=== PATIENT | female | born 1970 | race Two or more races ===

== ENCOUNTER 2017-06-14 13:04 | Inpatient (IN) | payer OTHER ==
[2017-06-14 13:16] VITALS: BMI 24.3
[2017-06-14] MEDS ORDERED: METOCLOPRAMIDE HCL INJECTION 10 MG/2 ML VIAL IVPUSH ONE ×2 (13:35→18:15)
[2017-06-14] MEDS ORDERED: morphine CARPU-JECT 4 MG/1 ML DISP.SYRIN IVPUSH ONE (13:35)
[2017-06-14] MEDS ORDERED: PANTOPRAZOLE SODIUM 40 MG VIAL IVPB ONE (13:35)
--- NOTE | 2017-06-14 13:35 | PDOC ---
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 She last had an endoscopy 2-3 years ago which she states was normal. She describes the epigastric pain as 10/10, sharp, radiating to her back, and constant for the past 2-3 days. She additionally notes subjective fever and chills, lightheadedness, and mild headache. She believes she is additionally withdrawling from morphine and Ativan because she has not taken either for 2-3 days. Past History - Past Medical History Allergies/Adverse Reactions: Allergies Allergy/AdvReac Type Severity Reaction Status Date / Time Penicillins Allergy Mild Verified 06/14/17 13:16 Home Medications: Ambulatory Orders Verapamil HCl ER [Calan Sr] 240 mg PO DAILY 05/18/11 Escitalopram Oxalate [Lexapro -] 10 mg PO DAILY 06/14/17 Hydromorphone HCl [Dilaudid] 8 mg PO Q3H PRN 06/14/17 Lorazepam [Ativan] 1 mg PO TID PRN 06/14/17 Morphine *Sr* [Ms Contin -] 90 mg PO Q12H 06/14/17 Ondansetron [Zofran Odt -] 8 mg SL Q8H PRN 06/14/17 Pregabalin [Lyrica] 25 mg PO TID 06/14/17 Zolpidem Tartrate [Ambien] 10 mg PO HS 06/14/17 levETIRAcetam [Keppra -] 500 mg PO BID 06/14/17 Cardiac Disorders: Yes (tachycardia, cardiac arrest) COPD: No GI Disorders: Yes (ulcers) Psychiatric Problems: Yes (anxiety,depression and etoh abuse) - Surgical History Cholecystectomy: Yes - Suicide/Smoking/Psychosocial Hx Smoking Status: No Smoking History: Never smoked Have you smoked in the past 12 months: No Number of Cigarettes Smoked Daily: 0 Information on smoking cessation initiated: No Hx Alcohol Use: No Drug/Substance Use Hx: No Substance Use Type: Alcohol Review of Systems - Review of Systems Able to Perform ROS?: Yes Constitutional: Yes: Chills, Fever (subjective). No: Unexplained wgt Loss HEENTM: No: Nose Congestion, Throat Pain Respiratory: Yes: Shortness of Breath. No: Cough Cardiac (ROS): Yes: Chest Pain (mild), Lightheadedness. No: Palpitations ABD/GI: Yes: Nausea, Vomiting, Other (hematemesis). No: Constipated, Diarrhea : No: Burning, Dysuria Musculoskeletal: No: Back Pain, Neck Pain Integumentary: No: Bruising, Rash Neurological: Yes: Headache. No: Numbness, Tingling, Weakness Endocrine: No: Unexplained Weight Gain, Unexplained Weight Loss *Physical Exam - Vital Signs Last Vital Signs Temp Pulse Resp BP Pulse Ox 98.7 F 94 H 16 130/91 100 06/14/17 13:08 06/14/17 13:08 06/14/17 13:08 06/14/17 13:08 06/14/17 13:08 - Physical Exam General Appearance: Yes: Nourished, Disheveled, Mild Distress, Other (actively vomiting small amount of coffee ground emesis with dark red blood, appears pale , answering most questions appropriately but lacks some insight into her health situation) HEENT: positive: EOMI, MADI, Normal Voice, Pale Conjunctivae, Hearing Grossly Normal. negative: Scleral Icterus (R), Scleral Icterus (L), Nasal Congestion Neck: positive: Trachea midline, Supple. negative: Tender, Rigid Respiratory/Chest: positive: Lungs Clear, Normal Breath Sounds. negative: Respiratory Distress, Crackles, Rhonchi, Stridor, Wheezing Cardiovascular: positive: Regular Rhythm, Regular Rate, S1, S2. negative: Edema , JVD, Murmur Gastrointestinal/Abdominal: positive: Normal Bowel Sounds, Soft. negative: Tender, Organomegaly, Pulsatile Mass, Guarding Musculoskeletal: positive: Normal Inspection. negative: Decreased Range of Motion, Vertebral Tenderness Extremity: positive: Normal Capillary Refill, Normal Inspection, Normal Range of Motion. negative: Tender, Cyanosis Integumentary: positive: Normal Color, Dry, Warm. negative: Erythema, Rash, Bruising Neurologic: positive: event decorator II-XII NML intact, Fully Oriented, Alert, Normal Mood/ Affect, Normal Response, Motor Strength 5/5 Procedures - Central Line Central Line Lumen: triple Central Line Position: internal jugular (R) Anesthesia: 1% Lidocaine Amount of anesthesia (ccs): 3 Complications: none Post Central Line Insertion: sutured, good blood return, position confirmed w/ CXR Heart Score/ECG Review #1 NSR, anterior T-wave inversions, prolonged QTc of 490 ms. ED Treatment Course - LABORATORY CBC & Chemistry Diagram: 06/15/17 05:15 06/15/17 05:15 Medical Decision Making - Critical Care Time Total Critical Care Time (minutes): 45 Critical Care Statement: The care of this patient involved high complexity decision making to prevent further life threatening deterioration of the patient 's condition and/or to evaluate & treat vital organ system(s) failure or risk of failure. - Medical Decision Making 47 YOF patient with h/o heavy EtOH use p/w hematemesis and epigastric pain. Initial Vital Signs Temp Pulse Resp BP Pulse Ox 98.7 F 94 H 16 130/91 100 06/14/17 13:08 06/14/17 13:08 06/14/17 13:08 06/14/17 13:08 06/14/17 13:08 Exam: Appears uncomfortable, actively vomiting small amount of coffee ground emesis with dark red blood, appears pale, tachycardic. DDX IBNLT: varices, PUD, gastritis, esophagitis, gastritis, Yazmin-Carpenter, [place]ave, hemoptysis, epistaxis, W/U ordered: CXR, T&S, Coags, CBCD, CMP, Mg, Phos, Lactate, BCx, cardiac panel, lipase, UA, UCx. TX ordered: IVF, Octreotide bolus & drip, Protonix bolus & drip, Reglan, Ativan , Morphine, Aztreonam, vancomycin. PUD is overall MC cause of UGIB in US but Pt is a nonsmoker, no regular NSAID or ASA use. Most likely for this Pt is esophageal varices as patient reports EtOH liver disease. Possible Yazmin-Carpenter tear as patient reports EtOH use, but she does not report h/o hiatal hernia. Will consider add/l Tx for varices: blood products, vasopressin, Sengstaken- Smooth tube, endoscopy & banding. Consult order placed for GI Dr. Early; spoke with Dr. Leon wo will see the patient in the ED. EKG: NSR, anterior T-wave inversions, prolonged QTc of 490 ms. Patient is a difficult stick and right IJ central line is placed without complication; flushes and draws. Laboratory Tests 06/14/17 06/14/17 06/14/17 15:00 15:00 15:03 WBC 4.9 RBC 4.00 Hgb 12.9 Hct 37.9 MCV 94.9 MCH 32.4 MCHC 34.1 RDW 20.3 H D Plt Count 99 L D MPV 9.0 Neutrophils % 79.3 D Lymphocytes % 12.4 D Monocytes % 7.0 Eosinophils % 0.5 D Basophils % 0.8 PT with INR 15.80 H INR 1.40 H PTT (Actin FS) 17.7 L Sodium Potassium Chloride Carbon Dioxide Anion Gap BUN Creatinine Creat Clearance w eGFR Random Glucose Lactic Acid Calcium Total Bilirubin AST ALT Alkaline Phosphatase Creatine Kinase Troponin I Total Protein Albumin Lipase Urine Color Urine Appearance Urine pH Ur Specific [place] Urine Protein Urine Glucose (UA) Urine Ketones Urine Blood Urine Nitrite Urine Bilirubin Urine Urobilinogen Ur Leukocyte Esterase Urine WBC (Auto) Urine RBC (Auto) Urine Mucus Blood Type O POSITIVE Antibody Screen Negative 06/14/17 06/14/17 06/14/17 15:03 15:03 15:03 WBC RBC Hgb Hct MCV MCH MCHC RDW Plt Count MPV Neutrophils % Lymphocytes % Monocytes % Eosinophils % Basophils % PT with INR INR PTT (Actin FS) Sodium 142 Potassium 3.6 Chloride 103 Carbon Dioxide 31 Anion Gap 8 BUN 9 Creatinine 0.6 Creat Clearance w eGFR > 60 Random Glucose 138 H Lactic Acid 3.0 H* Calcium 8.2 L Total Bilirubin 2.4 H D AST 208 H ALT 93 H Alkaline Phosphatase 231 H Creatine Kinase 52 Troponin I < 0.02 Total Protein 6.9 Albumin 3.2 L Lipase 70 L Urine Color Urine Appearance Urine pH Ur Specific [place] Urine Protein Urine Glucose (UA) Urine Ketones Urine Blood Urine Nitrite Urine Bilirubin Urine Urobilinogen Ur Leukocyte Esterase Urine WBC (Auto) Urine RBC (Auto) Urine Mucus Blood Type Antibody Screen 06/14/17 06/14/17 15:20 15:24 WBC RBC Hgb Hct MCV MCH MCHC RDW Plt Count MPV Neutrophils % Lymphocytes % Monocytes % Eosinophils % Basophils % PT with INR INR PTT (Actin FS) Sodium Potassium Chloride Carbon Dioxide Anion Gap BUN Creatinine Creat Clearance w eGFR Random Glucose Lactic Acid Calcium Total Bilirubin AST ALT Alkaline Phosphatase Creatine Kinase Troponin I Total Protein Albumin Lipase Urine Color Dk yellow Urine Appearance Clear Urine pH 7.0 Ur Specific [place] 1.010 Urine Protein 1+ H Urine Glucose (UA) Negative Urine Ketones Negative Urine Blood Negative Urine Nitrite Negative Urine Bilirubin Negative Urine Urobilinogen 4.0 e.u/dl H Ur Leukocyte Esterase Negative Urine WBC (Auto) 1 Urine RBC (Auto) None Urine Mucus Rare Blood Type Cancelled Antibody Screen Lactate is 3.0. ALT and AST are elevated in alcoholic hepatitis pattern; have been similarly elevated for her in the past too. Vital Signs Temperature 98.7 F 06/14/17 13:08 Pulse Rate 98 H 06/14/17 16:36 Respiratory Rate 18 06/14/17 16:36 Blood Pressure 129/82 06/14/17 16:36 O2 Sat by Pulse Oximetry (%) 95 06/14/17 16:36 06/14/17 16:57 Dr. Leon evaluates patient at the bedside. Reassessment: Patient feeling much better, no longer vomiting, resting comfortably, mild epigastric ttp. CXR: Central line in good position, NADP. The patient is unsafe for discharge at this time. She require further hospital observation, workup, and treatment. Spoke with Dr. Henderson who accepts her for ICU placement. Microblog sent to [facility] for admission. Spoke with [facility] (Maria M Dorado), in agreement patient to be admitted to ICU. [facility] requests consult placed to Dr. Ayala; order placed. Decision to Admit order placed to [facility] covering attending Dr. Castro. 06/14/17 17:06 *DC/Admit/Observation/Transfer Diagnosis at time of Disposition: UGIB (upper gastrointestinal bleed), Alcoholic liver disease, Elevated lactic acid level - Discharge Dispostion Condition at time of disposition: Guarded Decision to Admit order: Yes - Referrals - Patient Instructions - Post Discharge Activity
[2017-06-14] MEDS ORDERED: OCTREOTIDE ACETATE 50 MCG/1 ML - 1 ML VIAL IVPUSH ONE (13:49)
[2017-06-14] MEDS ORDERED: PANTOPRAZOLE SODIUM 80 MG in SODIUM CHLORIDE 100 ML IVPB SCH (14:00)
[2017-06-14] MEDS ORDERED: OCTREOTIDE ACETATE 1,200 MCG in DEXTROSE 5%-WATER - 488 ML IVPB SCH (14:00)
[2017-06-14] MEDS ORDERED: METOCLOPRAMIDE HCL INJECTION 10 MG/2 ML VIAL ONE (14:22)
[2017-06-14] MEDS ORDERED: PANTOPRAZOLE SODIUM 40 MG VIAL ONE (14:23)
[2017-06-14] MEDS ORDERED: OCTREOTIDE ACETATE 100 MCG/1 ML ONE (14:23)
[2017-06-14] MEDS ORDERED: morphine SULFATE 4 MG/ML VIAL ONE (14:23)
[2017-06-14] MEDS ORDERED: VANCOMYCIN 1,000 MG in DEXTROSE 5%-WATER - 250 ML IVPB ONE (15:08)
[2017-06-14] MEDS ORDERED: AZTREONAM 2 GM in DEXTROSE 5%-WATER 100 ML IVPB ONE (15:08)
[2017-06-14 15:12] LABS: HEMOGLOBIN 12.9 GM/dL (10.7-15.3); WHITE BLOOD COUNT 4.9 K/mm3 (4.0-10.0)
[2017-06-14 15:13] LABS: BASO % 0.8 % (0-2.0); EOS % 0.5 % (0-4.5); HEMATOCRIT 37.9 % (32.4-45.2); LYMPH % 12.4 % (8-40); MCH 32.4 pg (25.7-33.7); MCHC 34.1 g/dl (32.0-36.0); MEAN CELL VOLUME 94.9 fl (80-96); NEUT % 79.3 % (42.8-82.8); PLATELET COUNT 99 K/MM3 (134-434); RDW 20.3 % (11.6-15.6)
[2017-06-14 15:23] LABS: INR 1.4 (0.82-1.09); PROTHROMBIN TIME (PATIENT) 15.8 SEC (9.7-13.0)
[2017-06-14 15:25] LABS: ACTIVATED PTT 17.7 SECONDS (26.9-34.4)
[2017-06-14 15:28] LABS: URINE APPEARANCE CLEAR; URINE BILIRUBIN NEGATIVE (<2.0 mg/dL); URINE GLUCOSE (UA) NEGATIVE (NEGATIVE); URINE KETONE NEGATIVE (NEGATIVE); URINE LEUK ESTERASE NEGATIVE (NEGATIVE); URINE NITRITE NEGATIVE (NEGATIVE); URINE UROBILINOGEN 4.0 E.U/dl mg/dL (0.2-1.0)
--- NOTE | 2017-06-14 15:28 | PDOC ---
Attending Attestation - Resident Resident Name: Domi Jenkins - ED Attending Attestation I have performed the following: I have examined & evaluated the patient, The case was reviewed & discussed with the resident, I agree w/resident's findings & plan, Exceptions are as noted - HPI HPI: 06/14/17 15:27 47-year-old female with past medical history of alcohol abuse, fibromyalgia on chronic pain medications p/w hematemesis. The patient drinks liquor daily. Today , the patient has had vomiting dark vomitus. Reports epigastric pain. Takes NSAIDS intermittently. No fevers, chills. No blood per rectum. Patient came into the ED for further evaluation. - Physicial Exam PE: 06/14/17 15:53 GENERAL: Awake, alert, and fully oriented, pallorous. HEAD: No signs of trauma EYES: PERRLA, EOMI, sclera anicteric, conjunctiva clear ENT: Auricles normal inspection, hearing grossly normal, nares patent NECK: Normal ROM, supple, LUNGS: Breath sounds equal, clear to auscultation bilaterally. No wheezes, and no crackles HEART: Regular rate and rhythm, normal S1 and S2, no murmurs, rubs or gallops ABDOMEN: Soft, TTP epigastric. No guarding, no rebound. No masses EXTREMITIES: Normal range of motion, no edema. NEUROLOGICAL: Cranial nerves II through XII grossly intact. Normal speech, SKIN: Warm, Dry, normal turgor, no rashes or lesions noted. - Critical Care Time Total Critical Care Time: 45 Critical Care Statement: The care of this patient involved high complexity decision making to prevent further life threatening deterioration of the patient 's condition and/or to evaluate & treat vital organ system(s) failure or risk of failure. - Medical Decision Making 06/14/17 15:56 Vital Signs Temp Pulse Resp BP Pulse Ox 98.7 F 84 18 142/94 95 06/14/17 13:08 06/14/17 15:14 06/14/17 15:14 06/14/17 15:14 06/14/17 15:14 47 year old female presents with UGIB. Differential includes variceal bleeding (given alcohol hx), peptic/duodenal ulcer. Pt vitals stable. I agree with prophylactic antibiotics, PPI drip, octreotide. Pt with very difficult access peripherally. Given the nature of her illness, and with hematemesis, pt consented for triple lumen catheter. Under ultrasound guidance and sterile procedure, Right IJ triple lumen catheter placed. Chest xray reviewed by me, pending official radiology read. Triple lumen catheter in place, with what appears tip to be in SVC. Admit to ICU. 06/14/17 16:12 CBC, BMP 06/14/17 15:03 06/14/17 15:03 CMP Sodium 142 mmol/L (136-145) 06/14/17 15:03 Potassium 3.6 mmol/L (3.5-5.1) 06/14/17 15:03 Chloride 103 mmol/L (98-107) 06/14/17 15:03 Carbon Dioxide 31 mmol/L (21-32) 06/14/17 15:03 Anion Gap 8 (8-16) 06/14/17 15:03 BUN 9 mg/dL (7-18) 06/14/17 15:03 Creatinine 0.6 mg/dL (0.55-1.02) 06/14/17 15:03 Creat Clearance w eGFR > 60 (>60) 06/14/17 15:03 Random Glucose 138 mg/dL (74-106) H 06/14/17 15:03 Lactic Acid 3.0 mmol/L (0.0-2.0) H* 06/14/17 15:03 Calcium 8.2 mg/dL (8.5-10.1) L 06/14/17 15:03 Total Bilirubin 2.4 mg/dL (0.2-1.0) H D 06/14/17 15:03 AST 208 U/L (15-37) H 06/14/17 15:03 ALT 93 U/L (12-78) H 06/14/17 15:03 Alkaline Phosphatase 231 U/L (45-117) H 06/14/17 15:03 Creatine Kinase 52 IU/L (26-192) 06/14/17 15:03 Troponin I < 0.02 ng/ml (0.00-0.05) 06/14/17 15:03 Total Protein 6.9 g/dl (6.4-8.2) 06/14/17 15:03 Albumin 3.2 g/dl (3.4-5.0) L 06/14/17 15:03 Lipase 70 U/L (73-393) L 06/14/17 15:03 Labs reviewed. Low plts, elevated INR, Total bili concerning for cirrhosis. Heart Score/ECG Review #1 ECG reviewed & interpreted by me at: 13:20 06/14/17 15:35 NSR 95, no manas, QTC 490 msec, 1mm STD V2, TWi V2-V3, QTC 490 msec
[2017-06-14 15:31] LABS: URINE COLOR DK YELLOW; URINE PROTEIN 1+ (NEGATIVE)
[2017-06-14 15:34] LABS: URINE MUCUS RARE
[2017-06-14 15:41] LABS: ALBUMIN 3.2 g/dl (3.4-5.0); ALK PHOS 231 U/L (45-117); ANION GAP 8 (8-16); BILIRUBIN,TOTAL 2.4 mg/dL (0.2-1.0); BLOOD UREA NITROGEN 9 mg/dL (7-18); CALCIUM 8.2 mg/dL (8.5-10.1); CHLORIDE 103 mmol/L (98-107); CO2 31 mmol/L (21-32); CREATININE 0.6 mg/dL (0.55-1.02); GLUCOSE,RANDOM 138 mg/dL (74-106); LIPASE 70 U/L (73-393); POTASSIUM 3.6 mmol/L (3.5-5.1); SGOT/AST 208 U/L (15-37); SGPT/ALT 93 U/L (12-78); SODIUM 142 mmol/L (136-145); TOT PROT 6.9 g/dl (6.4-8.2)
[2017-06-14] MEDS: SODIUM CHLORIDE 1,000 ML IV SCH (15:52)
[2017-06-14] MEDS: PANTOPRAZOLE SODIUM 160 MG in DEXTROSE 5%-WATER - 290 ML IVPB SCH (15:53)
[2017-06-14] MEDS ORDERED: VANCOMYCIN 1 GRAM (PRE-DOCKED) 1,000 MG/250 ML BAG IVPB ONE (15:58)
--- NOTE | 2017-06-14 17:24 | CON.GI ---
Consult Consult Specialty:: Gastroenterology ( covering Dr. Early) Referred by:: Dr. Yates Reason for Consultation:: hematemesis - History of Present Illness Chief Complaint: I vomited blood today. I have been vomiting blood for weeks. History of Present Illness: 47F presents to the ER c/o bloody vomitus. She claims to have been vomiting blood for several weeks. She reports that she was hospitalized at [facility] 2 weeks ago but had no endoscopy done. She denies melena. She has chronic abdominal pain for which she is seeking narcotics. She drinks vodka daily but denies having been told that she has cirrhosis. She reports that she has systemic herpes virus for many years for which she was extensivle evaluated at [facility] in [place] 3 years ago. She had an EGD and colonoscopy there and reports both as being normal. She reports that she has a seizure disorder related to this virus but has never had a lumbar puncture, meningitis or encephalitis. She denies that her seizures are alcohol related but admits to developing DTs when she stops alcohol. She reports that she has major depression but is not bipolar and denies ever having been suicidal. She has no family left since her parents . She is disabled and on public assistance. She denies IVDA, cocaine, tobacco or other substance abuses but is seeking morphine. I advised an EGD to exclude bleeding varices or ulcers given her alcohol abuse. I informed her of the potential risks that include perforation and hemorrhage among others and she has verbally consented. I explained this procedure may be done tomorrow by Dr Early. I explained that she may need rubber band ligation of varices. 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 Gastrointestinal: Yes: GI Bleed (chronic hematemesis) Hepatobiliary: Yes: Cirrhosis (suspect alcoholic cirrhosis given ), Other ( Alcohol abuse with suspect alcoholic hepatitis and now cirrhosis) Infectious Disease: Yes: Other (Systemic herpes simplex 6) Psych: Yes: Depression - Past Surgical History Past Surgical History: Yes: Cholecystectomy (laparoscopic cholecystectomy), Colonoscopy, Upper Endoscopy - Alcohol/Substance Use Hx Alcohol Use: Yes (daily vodka "2 drinks") - Smoking History Smoking history: Never smoked Have you smoked in the past 12 months: No Aproximately how many cigarettes per day: 0 - Social History Usual Living Arrangement: Alone ADL: Independent Occupation: disabled Place of : [facility] History of Recent Travel: No Home Medications - Allergies Allergies/Adverse Reactions: Allergies Allergy/AdvReac Type Severity Reaction Status Date / Time Penicillins Allergy Mild Verified 06/14/17 13:16 - Home Medications Home Medications: Ambulatory Orders Verapamil HCl ER [Calan Sr] 240 mg PO DAILY 05/18/11 Escitalopram Oxalate [Lexapro -] 10 mg PO DAILY 06/14/17 Hydromorphone HCl [Dilaudid] 8 mg PO Q3H PRN 06/14/17 Lorazepam [Ativan] 1 mg PO TID PRN 06/14/17 Morphine *Sr* [Ms Contin -] 90 mg PO Q12H 06/14/17 Ondansetron [Zofran Odt -] 8 mg SL Q8H PRN 06/14/17 Pregabalin [Lyrica] 25 mg PO TID 06/14/17 Zolpidem Tartrate [Ambien] 10 mg PO HS 06/14/17 levETIRAcetam [Keppra -] 500 mg PO BID 06/14/17 Family Disease History - Family Disease History Family Disease History: Heart Disease: Father ( 88 pneumonia, had MT at 80) , Other: Mother ( CVA age 79) Other Family History: no cancer Review of Systems - Review of Systems Constitutional: reports: Malaise, Weakness Eyes: reports: No Symptoms HENT: reports: No Symptoms Neck: reports: Pain on Movement Cardiovascular: reports: No Symptoms Respiratory: reports: SOB on Exertion Gastrointestinal: reports: Abdominal Pain, Vomiting Blood Musculoskeletal: reports: Back Pain, Muscle Pain Neurological: reports: Weakness Psychiatric: reports: Depression Physical Exam-GI Vital Signs: Vital Signs Temperature 98.7 F 06/14/17 13:08 Pulse Rate 98 H 06/14/17 16:36 Respiratory Rate 18 06/14/17 16:36 Blood Pressure 129/82 06/14/17 16:36 O2 Sat by Pulse Oximetry (%) 95 06/14/17 16:36 CBC,CMP WBC 4.9 K/mm3 (4.0-10.0) 06/14/17 15:03 RBC 4.00 M/mm3 (3.60-5.2) 06/14/17 15:03 Hgb 12.9 GM/dL (10.7-15.3) 06/14/17 15:03 Hct 37.9 % (32.4-45.2) 06/14/17 15:03 MCV 94.9 fl (80-96) 06/14/17 15:03 MCH 32.4 pg (25.7-33.7) 06/14/17 15:03 MCHC 34.1 g/dl (32.0-36.0) 06/14/17 15:03 RDW 20.3 % (11.6-15.6) H D 06/14/17 15:03 Plt Count 99 K/MM3 (134-434) L D 06/14/17 15:03 MPV 9.0 fl (7.5-11.1) 06/14/17 15:03 Neutrophils % 79.3 % (42.8-82.8) D 06/14/17 15:03 Lymphocytes % 12.4 % (8-40) D 06/14/17 15:03 Monocytes % 7.0 % (3.8-10.2) 06/14/17 15:03 Eosinophils % 0.5 % (0-4.5) D 06/14/17 15:03 Basophils % 0.8 % (0-2.0) 06/14/17 15:03 Sodium 142 mmol/L (136-145) 06/14/17 15:03 Potassium 3.6 mmol/L (3.5-5.1) 06/14/17 15:03 Chloride 103 mmol/L (98-107) 06/14/17 15:03 Carbon Dioxide 31 mmol/L (21-32) 06/14/17 15:03 Anion Gap 8 (8-16) 06/14/17 15:03 BUN 9 mg/dL (7-18) 06/14/17 15:03 Creatinine 0.6 mg/dL (0.55-1.02) 06/14/17 15:03 Creat Clearance w eGFR > 60 (>60) 06/14/17 15:03 Random Glucose 138 mg/dL (74-106) H 06/14/17 15:03 Lactic Acid 3.0 mmol/L (0.0-2.0) H* 06/14/17 15:03 Calcium 8.2 mg/dL (8.5-10.1) L 06/14/17 15:03 Total Bilirubin 2.4 mg/dL (0.2-1.0) H D 06/14/17 15:03 AST 208 U/L (15-37) H 06/14/17 15:03 ALT 93 U/L (12-78) H 06/14/17 15:03 Alkaline Phosphatase 231 U/L (45-117) H 06/14/17 15:03 Creatine Kinase 52 IU/L (26-192) 06/14/17 15:03 Troponin I < 0.02 ng/ml (0.00-0.05) 06/14/17 15:03 Total Protein 6.9 g/dl (6.4-8.2) 06/14/17 15:03 Albumin 3.2 g/dl (3.4-5.0) L 06/14/17 15:03 Lipase 70 U/L (73-393) L 06/14/17 15:03 Current Medications Generic Name Dose Route Start Last Admin Trade Name Ynes PRN Reason Stop Dose Admin Octreotide Acetate 1,200 mcg/ 500 mls @ 20.83 mls/hr 06/14/17 14:00 06/14/17 15:53 Dextrose IVPB 20.83 mls/hr ASDIR AMELIA Administration Protocol 50 MCG/HR Sodium Chloride 1,000 mls @ 125 mls/hr 06/14/17 13:45 06/14/17 15:52 Normal Saline - IV 125 mls/hr ASDIR AMELIA Administration Pantoprazole Sodium 160 mg/ 290 mls @ 14.5 mls/hr 06/14/17 14:15 06/14/17 15: 53 Dextrose IVPB 14.5 mls/hr Q20H AMELIA Administration Constitutional: Yes: Anxious Eyes: Yes: Conjunctiva Clear HENT: Yes: Normocephalic Neck: Yes: Supple Cardiovascular: Yes: Regular Rate and Rhythm Respiratory: Yes: CTA Bilaterally Gastrointestinal Inspection: Yes: Scars (healed lap choly incisions) ...Auscultate: Yes: Normoactive Bowel Sounds ...Palpate: Yes: Soft, Other (nontender) ...Rectal Exam: Yes: Guaiac Positive (hard brown trace guaiac psoitive stool), Sphincter Tone Normal Edema: No Neurological: Yes: Alert, Oriented Labs: CBC, BMP 06/14/17 15:03 06/14/17 15:03 INR, PTT INR 1.40 (0.82-1.09) H 06/14/17 15:00 Problem List - Problems (1) Alcoholic liver disease Assessment/Plan: The pattern of transaminases is c/w alcoholic hepatitis. Her jaundice, elevated INR and thrombocytopenia suggest cirrhosis. I margaux order a sonogram to exclude hepatoma, cirrhosis and ascites. Dr. Early will assume her care tomorrow. Code(s): K70.9 - ALCOHOLIC LIVER DISEASE, UNSPECIFIED (2) UGIB (upper gastrointestinal bleed) Assessment/Plan: Given her normal Hb and only trace guaiac positive stool the patient does not appear to have a major bleed at present. Given her alcohol abuse and labs suggesting cirrhosis she will however need an EGD to exclude varices. I have obtained consent for EGD which I will discuss with Dr. Early and which can hopefully be done tomorrow. Code(s): K92.2 - GASTROINTESTINAL HEMORRHAGE, UNSPECIFIED
--- NOTE | 2017-06-14 18:26 | HP ---
"CHIEF COMPLAINT: vomiting blood PCP: Dr. Viraj Ying HISTORY OF PRESENT ILLNESS: This is a 47 year old female with PMHx of upper GI bleed, cirrhosis, alcoholic pancreatitis, cardiac arrest? (2/2 electrolyte disturbance?), anxiety, fibromyalgia, who presented to the ED with upper GI bleed. The patient reports that she has had upper GI bleeding in the past multiple times in the past. She reports a few weeks ago she had coffee ground emesis and then it got better. She states a few days ago it started again and did not improve. She denies any esopahgeal varices in the past. The patient is on multiple narcotics including morphine, dilaudid. She also takes ativan 1mg tid. ER course was notable for: (1) Temp 98.7, pulse 94, BP 130/91, resp 16, O2 100% on RA (2) Hgb 12.9, platelets 99 (3) INR 1.4 (4) Lactic acid 3 (5) Protonix gtt and octreotide gtt started (6) Empiric Vancomycin and Aztreonam given Recent Travel: denies PAST MEDICAL HISTORY: as above PAST SURGICAL HISTORY: Cholecystectomy 3 years ago Social History: Smoking: denies Alcohol: daily vodka (2 drinks per day) Drugs: denies Family History: Allergies Penicillins Allergy (Mild, Verified 06/14/17 13:16) HOME MEDICATIONS: Home Medications Medication Instructions Recorded Verapamil HCl ER [Calan Sr] 240 mg PO DAILY 05/18/11 Escitalopram Oxalate [Lexapro -] 10 mg PO DAILY 06/14/17 Hydromorphone HCl [Dilaudid] 8 mg PO Q3H PRN 06/14/17 Lorazepam [Ativan] 1 mg PO TID PRN 06/14/17 Morphine *Sr* [Ms Contin -] 90 mg PO Q12H 06/14/17 Ondansetron [Zofran Odt -] 8 mg SL Q8H PRN 06/14/17 Pregabalin [Lyrica] 25 mg PO TID 06/14/17 Zolpidem Tartrate [Ambien] 10 mg PO HS 06/14/17 levETIRAcetam [Keppra -] 500 mg PO BID 06/14/17 REVIEW OF SYSTEMS CONSTITUTIONAL: Absent: fever, chills, diaphoresis, generalized weakness, malaise, loss of appetite, weight change HEENT: Absent: rhinorrhea, nasal congestion, throat pain, throat swelling, difficulty swallowing, mouth swelling, ear pain, eye pain, visual changes CARDIOVASCULAR: Absent: chest pain, syncope, palpitations, irregular heart rate, lightheadedness , peripheral edema RESPIRATORY: Absent: cough, shortness of breath, dyspnea with exertion, orthopnea, wheezing, stridor, hemoptysis GASTROINTESTINAL: Coffee ground emesis as above Absent: abdominal pain, abdominal distension, diarrhea, constipation, melena, hematochezia GENITOURINARY: Absent: dysuria, frequency, urgency, hesitancy, hematuria, flank pain, genital pain MUSCULOSKELETAL: Absent: myalgia, arthralgia, joint swelling, back pain, neck pain SKIN: Absent: rash, itching, pallor HEMATOLOGIC/IMMUNOLOGIC: Absent: easy bleeding, easy bruising, lymphadenopathy, frequent infections ENDOCRINE: Absent: unexplained weight gain, unexplained weight loss, heat intolerance, cold intolerance NEUROLOGIC: Absent: headache, focal weakness or paresthesias, dizziness, unsteady gait, seizure, mental status changes, bladder or bowel incontinence PSYCHIATRIC: Absent: anxiety, depression, suicidal or homicidal ideation, hallucinations. PHYSICAL EXAMINATION Vital Signs - 24 hr 06/14/17 06/14/17 06/14/17 13:08 13:33 15:14 Temperature 98.7 F Pulse Rate 94 H Pulse Rate [ 84 Apical] Respiratory 16 18 Rate Blood Pressure 130/91 Blood Pressure 142/94 [Right Arm] O2 Sat by Pulse 100 97 95 Oximetry (%) 06/14/17 06/14/17 06/14/17 16:05 16:36 17:41 Temperature Pulse Rate Pulse Rate [ 84 98 H 88 Apical] Respiratory 18 18 18 Rate Blood Pressure Blood Pressure 141/89 129/82 119/90 [Right Arm] O2 Sat by Pulse 95 95 95 Oximetry (%) GENERAL: Awake, alert, and fully oriented, in no acute distress. HEAD: Normal with no signs of trauma. EYES: Pupils equal, round and reactive to light, extraocular movements intact, sclera anicteric, conjunctiva clear. No lid lag. EARS, NOSE, THROAT: Ears normal, nares patent, oropharynx clear without exudates. NECK: Normal range of motion, supple without lymphadenopathy LUNGS: Breath sounds equal, clear to auscultation bilaterally HEART: Regular rate and rhythm, normal S1 and S2 ABDOMEN: Soft, nontender, not distended, normoactive bowel sounds, no guarding, no rebound, no masses. No hepatomegaly or splenomegaly. MUSCULOSKELETAL: Normal range of motion at all joints. No bony deformities or tenderness. No CVA tenderness. UPPER EXTREMITIES: 2+ pulses, warm, well-perfused. No cyanosis. No clubbing. No peripheral edema. LOWER EXTREMITIES: 2+ pulses, warm, well-perfused. No calf tenderness. No peripheral edema. NEUROLOGICAL: Cranial nerves II-XII intact. Normal speech PSYCHIATRIC: Cooperative. Good eye contact. Appropriate mood and affect. SKIN: Warm, dry, normal turgor, no rashes or lesions noted, normal capillary refill. Laboratory Results - last 24 hr 06/14/17 06/14/17 06/14/17 15:00 15:00 15:03 WBC 4.9 RBC 4.00 Hgb 12.9 Hct 37.9 MCV 94.9 MCH 32.4 MCHC 34.1 RDW 20.3 H D Plt Count 99 L D MPV 9.0 Neutrophils % 79.3 D Lymphocytes % 12.4 D Monocytes % 7.0 Eosinophils % 0.5 D Basophils % 0.8 PT with INR 15.80 H INR 1.40 H PTT (Actin FS) 17.7 L Sodium Potassium Chloride Carbon Dioxide Anion Gap BUN Creatinine Creat Clearance w eGFR Random Glucose Lactic Acid Calcium Total Bilirubin AST ALT Alkaline Phosphatase Creatine Kinase Troponin I Total Protein Albumin Lipase Urine Color Urine Appearance Urine pH Ur Specific Newcomb Urine Protein Urine Glucose (UA) Urine Ketones Urine Blood Urine Nitrite Urine Bilirubin Urine Urobilinogen Ur Leukocyte Esterase Urine WBC (Auto) Urine RBC (Auto) Urine Mucus Stool Occult Blood Blood Type O POSITIVE Antibody Screen Negative 06/14/17 06/14/17 06/14/17 15:03 15:03 15:03 WBC RBC Hgb Hct MCV MCH MCHC RDW Plt Count MPV Neutrophils % Lymphocytes % Monocytes % Eosinophils % Basophils % PT with INR INR PTT (Actin FS) Sodium 142 Potassium 3.6 Chloride 103 Carbon Dioxide 31 Anion Gap 8 BUN 9 Creatinine 0.6 Creat Clearance w eGFR > 60 Random Glucose 138 H Lactic Acid 3.0 H* Calcium 8.2 L Total Bilirubin 2.4 H D AST 208 H ALT 93 H Alkaline Phosphatase 231 H Creatine Kinase 52 Troponin I < 0.02 Total Protein 6.9 Albumin 3.2 L Lipase 70 L Urine Color Urine Appearance Urine pH Ur Specific Newcomb Urine Protein Urine Glucose (UA) Urine Ketones Urine Blood Urine Nitrite Urine Bilirubin Urine Urobilinogen Ur Leukocyte Esterase Urine WBC (Auto) Urine RBC (Auto) Urine Mucus Stool Occult Blood Blood Type Antibody Screen 06/14/17 06/14/17 06/14/17 15:20 15:24 15:50 WBC RBC Hgb Hct MCV MCH MCHC RDW Plt Count MPV Neutrophils % Lymphocytes % Monocytes % Eosinophils % Basophils % PT with INR INR PTT (Actin FS) Sodium Potassium Chloride Carbon Dioxide Anion Gap BUN Creatinine Creat Clearance w eGFR Random Glucose Lactic Acid Calcium Total Bilirubin AST ALT Alkaline Phosphatase Creatine Kinase Troponin I Total Protein Albumin Lipase Urine Color Dk yellow Urine Appearance Clear Urine pH 7.0 Ur Specific Newcomb 1.010 Urine Protein 1+ H Urine Glucose (UA) Negative Urine Ketones Negative Urine Blood Negative Urine Nitrite Negative Urine Bilirubin Negative Urine Urobilinogen 4.0 e.u/dl H Ur Leukocyte Esterase Negative Urine WBC (Auto) 1 Urine RBC (Auto) None Urine Mucus Rare Stool Occult Blood Negative Blood Type Cancelled Antibody Screen Assessment: This is a 47 year old female with PMHx of upper GI bleed, cirrhosis , alcoholic pancreatitis, cardiac arrest? (2/2 electrolyte disturbance?), anxiety, fibromyalgia, who presented to the ED with upper GI bleed Plan: 1) Upper GI bleed - NPO - Octreotide gtt - Protonix gtt - IV fluids - Will need EGD likely tomorrow - Monitor CBC - Appreciate GI consult 2) Alcoholic liver disease - Transaminitis consistent with alcoholic hepatitis - Jaundice, elevated INR, thrombocytopenia suggestive of cirrhosis - F/u liver ultrasound to r/o hepatoma, cirrhosis 3) Fibromyalgia - Patient with polypharmacy as seen below from [place] - On high amounts of narcotics - Will continue standing Morphine 2mg q4h for now to prevent withdrawals - Attempted to contact Dr. Ayala for further recommendations, awaiting call back 4) Alcohol abuse - No evidence of current withdrawal - Patient NPO so cannot start Librium taper - Will give Ativan 2mg q4h standing and Ativan 2mg q1h prn for seizures - Monitor closely This report was requested by: Maria M Dorado | Reference #: [id number] Patient Name: Marah Nielsen Date: 1970 Address: [address] [place] [id number] Sex: Female Rx Written Rx Dispensed Drug Quantity Days Supply Prescriber Name 05/25/2017 05/28/2017 morphine sulfate er 60 mg cap 180 30 Deonna, Viraj Comer Jr, MD 05/06/2017 05/21/2017 lorazepam 1 mg tablet 90 30 Deonna, Viraj Comer Jr, MD 05/06/2017 05/14/2017 hydromorphone 8 mg tablet 180 30 Deonna, Viraj Comer Jr, MD 04/22/2017 04/24/2017 morphine sulfate er 60 mg cap 180 30 Deonna, Viraj Comer Jr, MD 04/22/2017 04/24/2017 lorazepam 1 mg tablet 90 30 Deonna, Viraj Comer Jr, MD 03/26/2017 04/07/2017 hydromorphone 8 mg tablet 240 30 Deonna, Viraj Comer Jr, MD 02/23/2017 03/25/2017 morphine sulfate er 60 mg cap 130 27 Deonna, Viraj Comer Jr, MD 03/24/2017 03/25/2017 zolpidem tartrate 10 mg tablet 30 30 Deonna, Viraj Comer Jr, MD 03/24/2017 03/25/2017 morphine sulfate er 60 mg cap 130 22 Deonna, Viraj Comer Jr, MD 03/24/2017 03/25/2017 lorazepam 1 mg tablet 28 7 Deonna, Viraj Comer Jr, MD 02/23/2017 02/24/2017 zolpidem tartrate 10 mg tablet 30 30 Deonna, Viraj Comer Jr, MD 02/23/2017 02/24/2017 hydromorphone 8 mg tablet 240 30 Deonna, Viraj Comer Jr, MD 02/23/2017 02/24/2017 lorazepam 1 mg tablet 28 7 Deonna, Viraj Comer Jr, MD Patient Name: Marah Taylor Date: 1970 Address: [address] [place] [address] Sex: Female Rx Written Rx Dispensed Drug Quantity Days Supply Prescriber Name 03/26/2017 04/04/2017 lorazepam 1 mg tablet 90 30 Deonna GarciaP 03/26/2017 04/04/2017 zolpidem tartrate 5 mg tablet 15 15 Deonna GarciaP 03/26/2017 04/04/2017 hydromorphone 4 mg tablet 40 10 Deonna Garcia 03/26/2017 04/04/2017 lyrica 25 mg capsule 45 15 Deonna Garcia Patient Name: Marah Taylor Date: 1970 Address: [address] [place] [id number] Sex: Female Rx Written Rx Dispensed Drug Quantity Days Supply Prescriber Name 03/20/2017 03/20/2017 lyrica 25 mg capsule 42 14 Leonel Gonzales MD 03/07/2017 03/08/2017 zolpidem tartrate 5 mg tablet 30 30 Leonel Gonzales MD 03/02/2017 03/03/2017 lorazepam 1 mg tablet 90 30 Leonel Gonzales MD 03/02/2017 03/03/2017 hydromorphone 4 mg tablet 120 30 Leonel Gonzales MD 03/03/2017 03/03/2017 lyrica 25 mg capsule 42 14 Deonna Garcia Visit type - Emergency Visit Emergency Visit: Yes ED Registration Date: 06/14/17 Care time: The patient presented to the Emergency Department on the above date and was hospitalized for further evaluation of their emergent condition. - New Patient This patient is new to me today: Yes Date on this admission: 06/16/17 - Critical Care Critical Care patient: Yes Total Critical Care Time (in minutes): 65 Critical Care Statement: The care of this patient involved high complexity decision making to prevent further life threatening deterioration of the patient 's condition and/or to evaluate & treat vital organ system(s) failure or risk of failure. Hospitalist Screening - Colonoscopy Questionnaire Colonoscopy Questionnaire: Colonoscopy Questionnaire - Patient: 50 - 75 years old and never had a screening colonoscopy: Unknown History of colon or rectal polyps, or CA: Unknown History of IBD, Crohn's disease or UC: Unknown History of abdominal radiation therapy as a child: Unknown - Relative: 1 with colon or rectal CA, or polyps at age 60 or younger: Unknown Colon or rectal CA diagnosed at age 45 or younger: Unknown Multiple relatives with colon or rectal CA: Unknown - Outcome: Screening Result: Negative Screen"
[2017-06-14 20:09] LABS: BASO % 0.6 % (0-2.0); EOS % 0.2 % (0-4.5); HEMATOCRIT 37.3 % (32.4-45.2); HEMOGLOBIN 12.8 GM/dL (10.7-15.3); LYMPH % 9.2 % (8-40); MCH 32.8 pg (25.7-33.7); MCHC 34.3 g/dl (32.0-36.0); MEAN CELL VOLUME 95.6 fl (80-96); MEAN PLT VOLUME 8.7 fl (7.5-11.1); MONO % 6.8 % (3.8-10.2); NEUT % 83.2 % (42.8-82.8); PLATELET COUNT 100 K/MM3 (134-434); RDW 20.7 % (11.6-15.6); WHITE BLOOD COUNT 4.4 K/mm3 (4.0-10.0)
[2017-06-14 20:11] LABS: ADD RBC MORPHOLOGY YES
--- NOTE | 2017-06-14 20:15 | CONSULT ---
Consult Consult Specialty:: Pulmonary Critical Care Reason for Consultation:: Hematemesis - History of Present Illness Chief Complaint: Vomiting blood History of Present Illness: 47 yo female with h/o ETOH use, fibromyalgia, GIB who presented to ED c/o vomiting blood. Denied melena or BRBPR. Last EGD 3 years ago, reportedly normal. On arrival to ED hemodynamically stable. Labs notable for Hgb 12.9, platelets 99, INR 1.4, Lactate 3, AST/ALT 208/93, Alk phos 231, Bili 2.4, Lipase 70. IJ TLC placed given difficulty obtaining IV access/labs. She was started on protonix and octreotide drips, was also given Aztreonam and Vanco empirically. GI consulted and following, possible EGD travis. Pt now admitted to ICU for close monitoring. In ICU pt with no further vomiting, vitals stable. Repeat CBC pending. Current Medications Octreotide Acetate 1,200 mcg/ (Dextrose) 500 mls @ 20.83 mls/hr IVPB ASDIR AMELIA ; 50 MCG/HR PRN Reason: Protocol Last Admin: 06/14/17 15:53 Dose: 20.83 mls/hr Sodium Chloride (Normal Saline -) 1,000 mls @ 125 mls/hr IV ASDIR AMELIA Last Admin: 06/14/17 15:52 Dose: 125 mls/hr Pantoprazole Sodium 160 mg/ (Dextrose) 290 mls @ 14.5 mls/hr IVPB Q20H AMELIA Last Admin: 06/14/17 15:53 Dose: 14.5 mls/hr Lorazepam (Ativan Injection -) 2 mg IVPUSH Q1H PRN PRN Reason: seizures Lorazepam (Ativan Injection -) 2 mg IVPUSH Q4H-IV AMELIA Morphine Sulfate (Morphine Sulfate) 2 mg IVPUSH Q4H-IV AMELIA Ondansetron HCl (Zofran Injection) 4 mg IVPUSH Q6H PRN PRN Reason: NAUSEA AND/OR VOMITING - Past Medical History 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: 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 Gastrointestinal: Yes: GI Bleed (chronic hematemesis) Hepatobiliary: Yes: Cirrhosis (suspect alcoholic cirrhosis given ), Other ( Alcohol abuse with suspect alcoholic hepatitis and now cirrhosis) Infectious Disease: Yes: Other (Systemic herpes simplex 6) Psych: Yes: Depression - Past Surgical History Past Surgical History: Yes: Cholecystectomy (laparoscopic cholecystectomy), Colonoscopy, Upper Endoscopy - Alcohol/Substance Use Hx Alcohol Use: Yes (daily vodka "2 drinks"-LAST DRINK 06/14) - Smoking History Smoking history: Never smoked Have you smoked in the past 12 months: No Aproximately how many cigarettes per day: 0 - Social History Usual Living Arrangement: Alone ADL: Independent Occupation: disabled History of Recent Travel: No Home Medications - Allergies Allergies/Adverse Reactions: Allergies Allergy/AdvReac Type Severity Reaction Status Date / Time Penicillins Allergy Mild Verified 06/14/17 13:16 - Home Medications Home Medications: Ambulatory Orders Verapamil HCl ER [Calan Sr] 240 mg PO DAILY 05/18/11 Escitalopram Oxalate [Lexapro -] 10 mg PO DAILY 06/14/17 Hydromorphone HCl [Dilaudid] 8 mg PO Q3H PRN 06/14/17 Lorazepam [Ativan] 1 mg PO TID PRN 06/14/17 Morphine *Sr* [Ms Contin -] 90 mg PO Q12H 06/14/17 Ondansetron [Zofran Odt -] 8 mg SL Q8H PRN 06/14/17 Pregabalin [Lyrica] 25 mg PO TID 06/14/17 Zolpidem Tartrate [Ambien] 10 mg PO HS 06/14/17 levETIRAcetam [Keppra -] 500 mg PO BID 06/14/17 Family Disease History - Family Disease History Family Disease History: Heart Disease: Father ( 88 pneumonia, had KS at 80) , Other: Mother ( CVA age 79) Other Family History: no cancer Physical Exam Vital Signs: Vital Signs Temperature 98.8 F 06/14/17 18:20 Pulse Rate 87 06/14/17 18:20 Respiratory Rate 14 06/14/17 18:20 Blood Pressure 135/96 06/14/17 18:20 O2 Sat by Pulse Oximetry (%) 95 06/14/17 18:20 Constitutional: Yes: No Distress Cardiovascular: Yes: Regular Rate and Rhythm Respiratory: Yes: CTA Bilaterally Gastrointestinal: Yes: Soft, Abdomen, Obese, Hyperactive Bowel Sounds, Other ( diffuse tenderness in all four quadrants) Extremities: Yes: WNL Edema: No Peripheral Pulses WNL: Yes Neurological: Yes: WNL Labs: CBC, BMP 06/14/17 15:03 CBCD WBC 4.4 K/mm3 (4.0-10.0) 06/14/17 19:40 RBC 3.90 M/mm3 (3.60-5.2) 06/14/17 19:40 Hgb 12.8 GM/dL (10.7-15.3) 06/14/17 19:40 Hct 37.3 % (32.4-45.2) 06/14/17 19:40 MCV 95.6 fl (80-96) 06/14/17 19:40 MCHC 34.3 g/dl (32.0-36.0) 06/14/17 19:40 RDW 20.7 % (11.6-15.6) H 06/14/17 19:40 Plt Count 100 K/MM3 (134-434) L 06/14/17 19:40 MPV 8.7 fl (7.5-11.1) 06/14/17 19:40 CMP Sodium 142 mmol/L (136-145) 06/14/17 15:03 Potassium 3.6 mmol/L (3.5-5.1) 06/14/17 15:03 Chloride 103 mmol/L (98-107) 06/14/17 15:03 Carbon Dioxide 31 mmol/L (21-32) 06/14/17 15:03 Anion Gap 8 (8-16) 06/14/17 15:03 BUN 9 mg/dL (7-18) 06/14/17 15:03 Creatinine 0.6 mg/dL (0.55-1.02) 06/14/17 15:03 Creat Clearance w eGFR > 60 (>60) 06/14/17 15:03 Calcium 8.2 mg/dL (8.5-10.1) L 06/14/17 15:03 Total Bilirubin 2.4 mg/dL (0.2-1.0) H D 06/14/17 15:03 AST 208 U/L (15-37) H 06/14/17 15:03 ALT 93 U/L (12-78) H 06/14/17 15:03 Alkaline Phosphatase 231 U/L (45-117) H 06/14/17 15:03 Total Protein 6.9 g/dl (6.4-8.2) 06/14/17 15:03 Albumin 3.2 g/dl (3.4-5.0) L 06/14/17 15:03 Problem List - Problems (1) Alcoholic liver disease Code(s): K70.9 - ALCOHOLIC LIVER DISEASE, UNSPECIFIED (2) Elevated lactic acid level Code(s): R79.89 - OTHER SPECIFIED ABNORMAL FINDINGS OF BLOOD CHEMISTRY (3) UGIB (upper gastrointestinal bleed) Code(s): K92.2 - GASTROINTESTINAL HEMORRHAGE, UNSPECIFIED Assessment/Plan UGIB, PUD vs Yazmin-Carpenter tear vs EV ETOH use Transaminitis Elevated lipase -GI following -TLC for IV access -repeat CBC pending -transfuse for Hgb <7, plt <50 -cont protonix and octreotide drips -NPO for possible scope travis -f/u abd US -trend hepatic panel -trend lipase -recheck lactate -antiemetics -monitor for alcohol withdrawal -EDWARD Jasso Critical Care time: 35 min
[2017-06-14] MEDS: ONDANSETRON 4 MG/2 ML VIAL IVPUSH PRN (20:16)
[2017-06-14] MEDS: morphine SULFATE 4 MG/ML VIAL IVPUSH SCH ×2 (20:17→22:48)
[2017-06-14 20:23] LABS: MAGNESIUM 1.5 mg/dL (1.8-2.4); PHOSPHOROUS 1.6 mg/dL (2.5-4.9)
[2017-06-14] MEDS ORDERED: MAGNESIUM SULF 50% (8.12 MEQ/2 ML-1 GM VIAL) IVPB ONE (20:32)
--- NOTE | 2017-06-14 20:36 | CONSULT ---
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 Patient appears to be a chronic pain patient from fibromylagia on high dose morphine er 60mg tid with ativan 1mg tid and dilaudid 4-8 mg for breakthrough pain prescribed monthly, possibly from [facility]? Would maintain patient on medications and not undertake a detox at this time as this could precipitate a pain crisis. Call pain management physicians in AM. 180mg of daily morphine (60mg tid) translates into roughly 90mg iv morpher daily - plus her diluadid use is unknown so her dose to prevent withdrwal may be higher. Patient should be given IV Ativan prn for alcohol withdrawal sx to maintain BP/anxiety and pulse while in ICU - appears to have history of severe alcohol withdrawal sx, consider libirum detox when patient is able to take po medications. Discussed case with medical provider, Maria M Dorado NP - Medication Detox Regimen/Protocol: Not Applicable
[2017-06-14] MEDS ORDERED: SODIUM PHOSPHATE - 15 MM in DEXTROSE 5%-WATER - 250 ML IVPB ONE (21:15)
[2017-06-14 21:46] LABS: ANISOCYTOSIS 2+; MACROCYTOSIS 1+; PLATELET ESTIMATE SLT DECREASE
[2017-06-14 22:11] LABS: URINE AMPHETAMINES NEGATIVE ng/ml (CUTOFF=500); URINE BARBITURATES NEGATIVE ng/ml (CUTOFF=200)
[2017-06-14 22:12] LABS: COCAINE, UR NEGATIVE ng/ml (CUTOFF=300); METHADONE, UR NEGATIVE ng/ml (CUTOFF=300); OPIATES, URI POSITIVE ng/ml (CUTOFF=300); PHENCYCLIDINE,URINE NEGATIVE ng/ml (CUTOFF=25); URINE BENZODIAZEPINES NEGATIVE ng/ml (CUTOFF=200)
[2017-06-15] MEDS ORDERED: SODIUM CHLORIDE 500 ML IV STA (00:20)
[2017-06-15] MEDS: morphine SULFATE 4 MG/ML VIAL IVPUSH SCH ×4 (02:08→14:33)
[2017-06-15] MEDS: ONDANSETRON 4 MG/2 ML VIAL IVPUSH PRN ×3 (03:05→14:48)
[2017-06-15] MEDS: SODIUM CHLORIDE 1,000 ML IV SCH ×2 (05:35→12:18)
[2017-06-15 06:05] LABS: BASO % 0.7 % (0-2.0); EOS % 2.6 % (0-4.5); HEMATOCRIT 36.2 % (32.4-45.2); HEMOGLOBIN 12.4 GM/dL (10.7-15.3); LYMPH % 20.5 % (8-40); MCH 32.7 pg (25.7-33.7); MCHC 34.2 g/dl (32.0-36.0); MEAN CELL VOLUME 95.5 fl (80-96); NEUT % 67.2 % (42.8-82.8); PLATELET COUNT 96 K/MM3 (134-434); RBC 3.79 M/mm3 (3.60-5.2); RDW 20.2 % (11.6-15.6); WHITE BLOOD COUNT 3.4 K/mm3 (4.0-10.0)
[2017-06-15 06:39] LABS: ALBUMIN 2.8 g/dl (3.4-5.0); ALK PHOS 216 U/L (45-117); ANION GAP 4 (8-16); BILIRUBIN,TOTAL 2.6 mg/dL (0.2-1.0); BLOOD UREA NITROGEN 6 mg/dL (7-18); CALCIUM 7.1 mg/dL (8.5-10.1); CHLORIDE 103 mmol/L (98-107); CO2 33 mmol/L (21-32); CREATININE 0.6 mg/dL (0.55-1.02); GLUCOSE,RANDOM 136 mg/dL (74-106); MAGNESIUM 1.9 mg/dL (1.8-2.4); PHOSPHOROUS 2.1 mg/dL (2.5-4.9); POTASSIUM 3.3 mmol/L (3.5-5.1); SGOT/AST 155 U/L (15-37); SGPT/ALT 76 U/L (12-78); SODIUM 140 mmol/L (136-145); TOT PROT 6.2 g/dl (6.4-8.2)
--- NOTE | 2017-06-15 07:38 | PN ---
Progress Note (short form) - Note Progress Note: ID Full note dictated Selected Entries 06/15/17 06:00 Temperature 98.2 F Pulse Rate 62 Respiratory 14 Rate Blood Pressure 152/96 Microbiology Laboratory Tests 06/14/17 06/14/17 06/14/17 15:03 15:20 19:40 WBC Hgb Hct Plt Count Lactic Acid 3.0 H* 2.8 H* Total Bilirubin AST ALT Alkaline Phosphatase Urine WBC (Auto) 1 06/15/17 06/15/17 06/15/17 05:15 05:15 05:15 WBC 3.4 L Hgb 12.4 Hct 36.2 Plt Count 96 L Lactic Acid 2.4 H* Total Bilirubin 2.6 H AST 155 H ALT 76 Alkaline Phosphatase 216 H Urine WBC (Auto) Assessment UGIB Chronic alcoholism Varices possible History of HSV 6 details of work up in [place] unclear significance Plan See no indication for antibiotic now No workup for HSV 6 though will order Ab for interest Ronel NICK Problem List - Problems (1) Cirrhosis Code(s): K74.60 - UNSPECIFIED CIRRHOSIS OF LIVER (2) Alcoholic liver disease Code(s): K70.9 - ALCOHOLIC LIVER DISEASE, UNSPECIFIED (3) UGIB (upper gastrointestinal bleed) Code(s): K92.2 - GASTROINTESTINAL HEMORRHAGE, UNSPECIFIED
--- NOTE | 2017-06-15 09:38 | CONS ---
DATE OF CONSULTATION: DATE OF DICTATION: 06/15/2017 ICU INFECTIOUS DISEASE CONSULT HISTORY OF PRESENT ILLNESS: This is a 47-year-old white female who I am asked to see at the request of Maria M Dorado. She was admitted through the emergency room with upper GI bleeding and vomiting blood. She states that she was recently hospitalized at [facility] 2 weeks ago and apparently and endoscopy was not done at that time. She has had chronic abdominal pain for which she is seeking and has received high doses of narcotics through a physician at [facility]. The patient drinks vodka daily and, according to the notes, denies that she has any proceeding history of cirrhosis. There is a vague history of herpesvirus 6, apparently diagnosed several years ago in [place], but the patient is vague about how this came about and what the outcome of the evaluation was. Clearly, she did not have HIV, [place], or Kaposi sarcoma by history. She also has alcohol-related seizures and has episodes of DTs when she stops drinking. She suffers from a major depressive disorder that has not been suicidal. She is disabled and on public assistance. When asked, she states that she lives in [place] in a house. She denies any intravenous drug use or other substances and is seeking morphine, which she apparently gets on a daily basis. She was seen in consultation by Dr. Leon yesterday with a plan for upper GI bleeding and possible need for banding of varices. The patient has no fever since hospitalized. Her white count, albeit cirrhotic, has been normal or low. She denies any cough or urinary complaints. PAST MEDICAL HISTORY: As noted above. CURRENT MEDICATIONS: Include Zofran, Ativan, morphine sulfate, Protonix. ALLERGIES: PENICILLIN. SOCIAL HISTORY: Nonsmoker. Heavy alcohol abuse as noted. Lives alone. FAMILY HISTORY: Reviewed, noncontributory. REVIEW OF SYSTEMS: Respiratory: No cough, shortness of breath. Cardiac: No chest pain, palpitations, syncope. Gastrointestinal: Chronic abdominal pain. Vomiting blood. No melena. Genitourinary: No dysuria, hematuria, urinary frequency. PHYSICAL EXAMINATION: General: She is an alert female in no acute distress. Vital Signs: Her temperature was 98.2, pulse 62, blood pressure 152/96, respirations 14. Neck: Supple. Lungs: Clear to P and A. Heart: S1, S2. Regular rhythm without audible murmur or gallop. Abdomen: Soft. Positive bowel sounds. Healed laparoscopic cholecystectomy scar. No localized tenderness. Rectal: Exam guaiac positive. Extremities: No edema. LABORATORY DATA: The white count of 3.4, hemoglobin 12.4, platelets of 96,000. INR 1.40. BUN 6, creatinine 0.6. Lactic acid 3, now 2.4. Bilirubin 2.6. AST 155, ALT 76, alkaline phosphatase 216. Urinalysis with 1 RBC. Chest x-ray: Reviewed, shows no evidence of acute infiltrate seen. ASSESSMENT: 1. Upper gastrointestinal bleeding, possible varices. 2. Chronic alcoholism. 3. Vague history herpes simplex virus 6 diagnosed years ago in [place]. Unclear workup or significance of this finding at this time. PLAN: From an Infectious Disease standpoint, nothing further to do. She will have an upper endoscopy today and antibiotic prophylaxis for banding as needed. She is ALLERGIC TO PENICILLIN. Consider cefazolin as possible option. Case was discussed with Maria M Dorado, her nurse practitioner, and TYSON Day. JUAN A IVY M.D. POWER/[id number]
--- NOTE | 2017-06-15 10:36 | PN ---
Teaching Attending Note Name of Resident: Kip Lopez ATTENDING PHYSICIAN STATEMENT I saw and evaluated the patient. I reviewed the resident's note and discussed the case with the resident. I agree with the resident's findings and plan as documented. SUBJECTIVE: Pt seen and examined in the ICU. Somnolent but arousable. Speech unintelligible. OBJECTIVE: Last Vital Signs Temp Pulse Resp BP Pulse Ox 98.9 F 57 L 16 157/88 98 06/15/17 10:19 06/15/17 10:19 06/15/17 07:46 06/15/17 10:19 06/15/17 07:31 Intake & Output 06/12/17 06/13/17 06/14/17 06/15/17 23:59 23:59 23:59 23:59 Intake Total 850 1250 Output Total 750 1100 Balance 100 150 Weight 77.111 kg 70.931 kg Gen: somnolent but arousable Heart: RRR Lung: decreased breath sounds at the bases Abd: soft, nontender Ext: + edema CBC, BMP 06/15/17 05:15 06/15/17 05:15 Active Medications Octreotide Acetate 1,200 mcg/ (Dextrose) 500 mls @ 20.83 mls/hr IVPB ASDIR AMELIA ; 50 MCG/HR PRN Reason: Protocol Last Admin: 06/14/17 15:53 Dose: 20.83 mls/hr Sodium Chloride (Normal Saline -) 1,000 mls @ 125 mls/hr IV ASDIR AMELIA Last Admin: 06/15/17 05:35 Dose: 125 mls/hr Pantoprazole Sodium 160 mg/ (Dextrose) 290 mls @ 14.5 mls/hr IVPB Q20H AMELIA Last Admin: 06/14/17 15:53 Dose: 14.5 mls/hr Lorazepam (Ativan Injection -) 2 mg IVPUSH Q1H PRN PRN Reason: seizures Last Admin: 06/15/17 07:41 Dose: 2 mg Lorazepam (Ativan Injection -) 2 mg IVPUSH Q4H-IV AMELIA Last Admin: 06/15/17 10:24 Dose: 2 mg Morphine Sulfate (Morphine Sulfate) 2 mg IVPUSH Q4H-IV AMELIA Last Admin: 06/15/17 10:24 Dose: 2 mg Ondansetron HCl (Zofran Injection) 4 mg IVPUSH Q6H PRN PRN Reason: NAUSEA AND/OR VOMITING Last Admin: 06/15/17 07:45 Dose: 4 mg ASSESSMENT AND PLAN: GI Bleed Alcohol Abuse Thrombocytopenia Elevated LFTs likely from above Lactic Acidosis Opiate Dependence - monitor H/H - transfuse as needed - continue protonix, octreotide - for endoscopy - IVF - NPO - ensure large bore IV access - trend lactate - ativan standing and PRN - monitor for alcohol withdrawal - DVT prophylaxis - continue ICU monitoring critical care time spent in reviewing chart, evaluating patient and formulating plan 35 min
--- NOTE | 2017-06-15 11:11 | PN ---
"Progress Note (short form) - Note Progress Note: Subjective: The patient was seen and examined at the bedside, she is lethargic but stating that her anxiety has increased. She has some hand tremors on extension. Current Medications Generic Name Dose Route Start Last Admin Trade Name Freq PRN Reason Stop Dose Admin Octreotide Acetate 1,200 mcg/ 500 mls @ 20.83 mls/hr 06/14/17 14:00 06/14/17 15:53 Dextrose IVPB 20.83 mls/hr ASDIR AMELIA Administration Protocol 50 MCG/HR Sodium Chloride 1,000 mls @ 125 mls/hr 06/14/17 13:45 06/15/17 12:18 Normal Saline - IV 125 mls/hr ASDIR AMELIA Administration Pantoprazole Sodium 160 mg/ 290 mls @ 14.5 mls/hr 06/14/17 14:15 06/15/17 12: 19 Dextrose IVPB 14.5 mls/hr Q20H AMELIA Administration Potassium Chloride 10 meq in 100 mls @ 100 mls/hr 06/15/17 14:45 Potassium Chloride 10 Meq Premix Ivpb - IVPB 06/15/17 16:44 Q60M AMELIA Lorazepam 2 mg 06/14/17 18:58 06/15/17 07:41 Ativan Injection - IVPUSH 2 mg Q1H PRN Administration seizures Lorazepam 2 mg 06/14/17 19:00 06/15/17 14:32 Ativan Injection - IVPUSH 2 mg Q4H-IV AMELIA Administration Morphine Sulfate 2 mg 06/14/17 19:00 06/15/17 14:33 Morphine Sulfate IVPUSH 2 mg Q4H-IV AMELIA Administration Ondansetron HCl 4 mg 06/14/17 20:06 06/15/17 14:48 Zofran Injection IVPUSH 4 mg Q6H PRN Administration NAUSEA AND/OR VOMITING Objective: Vital Signs Period Temp Pulse Resp BP Sys/Frausto Pulse Ox Last 24 Hr 97.6 F-99.1 F 48-98 12-18 119-170/82-97 95-98 General: NAD, lethargic, answering questions with one word answers Lungs: CTA bilaterally Heart: RRR, S1S2 Abd: Soft, non-tender, non-distended. Normoactive bowel sounds Ext: Warm, well-perfused. 2+ DP/PT bilaterally Neuro: no focal deficits CBCD WBC 3.4 K/mm3 (4.0-10.0) L 06/15/17 05:15 RBC 3.79 M/mm3 (3.60-5.2) 06/15/17 05:15 Hgb 12.4 GM/dL (10.7-15.3) 06/15/17 05:15 Hct 36.2 % (32.4-45.2) 06/15/17 05:15 MCV 95.5 fl (80-96) 06/15/17 05:15 MCHC 34.2 g/dl (32.0-36.0) 06/15/17 05:15 RDW 20.2 % (11.6-15.6) H 06/15/17 05:15 Plt Count 96 K/MM3 (134-434) L 06/15/17 05:15 MPV 9.0 fl (7.5-11.1) 06/15/17 05:15 CMP Sodium 140 mmol/L (136-145) 06/15/17 05:15 Potassium 3.3 mmol/L (3.5-5.1) L 06/15/17 05:15 Chloride 103 mmol/L (98-107) 06/15/17 05:15 Carbon Dioxide 33 mmol/L (21-32) H 06/15/17 05:15 Anion Gap 4 (8-16) L 06/15/17 05:15 BUN 6 mg/dL (7-18) L 06/15/17 05:15 Creatinine 0.6 mg/dL (0.55-1.02) 06/15/17 05:15 Creat Clearance w eGFR > 60 (>60) 06/15/17 05:15 Random Glucose 136 mg/dL (74-106) H 06/15/17 05:15 Calcium 7.1 mg/dL (8.5-10.1) L 06/15/17 05:15 Total Bilirubin 2.6 mg/dL (0.2-1.0) H 06/15/17 05:15 AST 155 U/L (15-37) H 06/15/17 05:15 ALT 76 U/L (12-78) 06/15/17 05:15 Alkaline Phosphatase 216 U/L (45-117) H 06/15/17 05:15 Total Protein 6.2 g/dl (6.4-8.2) L 06/15/17 05:15 Albumin 2.8 g/dl (3.4-5.0) L 06/15/17 05:15 CARDIAC ENZYMES Creatine Kinase 52 IU/L (26-192) 06/14/17 15:03 Troponin I < 0.02 ng/ml (0.00-0.05) 06/14/17 15:03 Microbiology 06/14/17 15:20 Urine - Urine Clean Catch Urine Culture - Final NO GROWTH OBTAINED Assessment: This is a 47 year old female with PMHx of upper GI bleed, cirrhosis , alcoholic pancreatitis, cardiac arrest? (2/2 electrolyte disturbance?), anxiety, fibromyalgia, who presented to the ED with upper GI bleed Plan: 1) Upper GI bleed - EGD with moderate erythematous gastritis. Biopsies taken - NPO - Octreotide gtt - Protonix gtt - IV fluids - Monitor CBC - Appreciate GI consult 2) Alcoholic liver disease - Transaminitis consistent with alcoholic hepatitis - Jaundice, elevated INR, thrombocytopenia suggestive of cirrhosis - F/u liver ultrasound to r/o hepatoma, cirrhosis 3) Fibromyalgia - Patient with polypharmacy as seen below from [facility] - On high amounts of narcotics - Will continue standing Morphine 2mg q4h for now to prevent withdrawals - Discussed with Dr. Ayala, can increase Morphine as needed 4) Acute alcohol withdrawal - Signs of withdrawal - Patient NPO so cannot start Librium taper - Will give Ativan 2mg q4h standing and Ativan 2mg q1h prn for seizures. Discussed with Dr. Ayala - Monitor closely SLIP TENDER as below: Spoke to Dr. Ying who states patient will no longer be receiving pain management at his office as there is concern for opiate abuse. Spoke to Dr. Gonzales who covered the patient while she was at [facility] 2016-03/2017. During that time he prescribed narcotics to the patient and it appears during that time the patient also received her pain medication from Dr. Ying at pharmacy in [facility]. Per pharmacist at [facility] pharmacy, the patient's cousin Luis has been picking up her prescriptions every month while the [facility] in the [facility]. This report was requested by: Maria M Dorado | Reference #: [id number] Patient Name: Marah Nielsen Date: 1970 Address: [address] [place] [address] Sex: Female Rx Written Rx Dispensed Drug Quantity Days Supply Prescriber Name 05/25/2017 05/28/2017 morphine sulfate er 60 mg cap 180 30 Deonna, Viraj Comer Jr, MD 05/06/2017 05/21/2017 lorazepam 1 mg tablet 90 30 Deonna, Viraj Comer Jr, MD 05/06/2017 05/14/2017 hydromorphone 8 mg tablet 180 30 Deonna, Viraj Comer Jr, MD 04/22/2017 04/24/2017 morphine sulfate er 60 mg cap 180 30 Deonna, Viraj Comer Jr, MD 04/22/2017 04/24/2017 lorazepam 1 mg tablet 90 30 Deonna, Viraj Comer Jr, MD 03/26/2017 04/07/2017 hydromorphone 8 mg tablet 240 30 Deonna, Viraj Comer Jr, MD 02/23/2017 03/25/2017 morphine sulfate er 60 mg cap 130 27 Deonna, Viraj Comer Jr, MD 03/24/2017 03/25/2017 zolpidem tartrate 10 mg tablet 30 30 Deonna, Viraj Comer Jr, MD 03/24/2017 03/25/2017 morphine sulfate er 60 mg cap 130 22 Deonna, Viraj Comer Jr, MD 03/24/2017 03/25/2017 lorazepam 1 mg tablet 28 7 Deonna, Viraj Comer Jr, MD 02/23/2017 02/24/2017 zolpidem tartrate 10 mg tablet 30 30 Deonna, Viraj Comer Jr, MD 02/23/2017 02/24/2017 hydromorphone 8 mg tablet 240 30 Deonna, Viraj Comer Jr, MD 02/23/2017 02/24/2017 lorazepam 1 mg tablet 28 7 Deonna, Viraj Comer Jr, MD Patient Name: Marah Taylor Date: 1970 Address: [address] [place] [address] Sex: Female Rx Written Rx Dispensed Drug Quantity Days Supply Prescriber Name 03/26/2017 04/04/2017 lorazepam 1 mg tablet 90 30 Deonna Garcia 03/26/2017 04/04/2017 zolpidem tartrate 5 mg tablet 15 15 Deonna Garcia 03/26/2017 04/04/2017 hydromorphone 4 mg tablet 40 10 Deonna Garcia 03/26/2017 04/04/2017 lyrica 25 mg capsule 45 15 Deonna Garcia Patient Name: Marah Taylor Date: 1970 Address: [address] [place] [address] Sex: Female Rx Written Rx Dispensed Drug Quantity Days Supply Prescriber Name 03/20/2017 03/20/2017 lyrica 25 mg capsule 42 14 Leonel Gonzales MD 03/07/2017 03/08/2017 zolpidem tartrate 5 mg tablet 30 30 Leonel Gonzales MD 03/02/2017 03/03/2017 lorazepam 1 mg tablet 90 30 Leonel Gonzales MD 03/02/2017 03/03/2017 hydromorphone 4 mg tablet 120 30 Leonel Gonzales MD 03/03/2017 03/03/2017 lyrica 25 mg capsule 42 14 Deonna Garcia Visit type - Emergency Visit Emergency Visit: Yes ED Registration Date: 06/14/17 Care time: The patient presented to the Emergency Department on the above date and was hospitalized for further evaluation of their emergent condition. - New Patient This patient is new to me today: No - Critical Care Critical Care patient: Yes Total Critical Care Time (in minutes): 35 Critical Care Statement: The care of this patient involved high complexity decision making to prevent further life threatening deterioration of the patient 's condition and/or to evaluate & treat vital organ system(s) failure or risk of failure."
[2017-06-15] MEDS: PANTOPRAZOLE SODIUM 160 MG in DEXTROSE 5%-WATER - 290 ML IVPB SCH (12:19)
--- NOTE | 2017-06-15 12:25 | EKG ---
Test Reason : Blood Pressure : / mmHG Vent. Rate : 095 BPM Atrial Rate : 095 BPM P-R Int : 138 ms QRS Dur : 092 ms QT Int : 390 ms P-R-T Axes : 051 015 055 degrees QTc Int : 490 ms NORMAL SINUS RHYTHM T WAVE ABNORMALITY, CONSIDER ANTERIOR ISCHEMIA PROLONGED QT ABNORMAL ECG WHEN COMPARED WITH ECG OF 18-MAY-2011 10:38, INVERTED T WAVES HAVE REPLACED NONSPECIFIC T WAVE ABNORMALITY IN ANTERIOR LEADS Confirmed by MARIZA ROBERSON MD ([id number]) on 06/15/2017 12:25:41 PM Referred By: Confirmed By:MARIZA ROBERSON MD
--- NOTE | 2017-06-15 12:36 | PN ---
Physical Exam: SUBJECTIVE: Patient seen and examined in ICU. No acute events overnight. No vomiting, blood stools or melena. Patient states that she has epigastric abdominal pain and feels nauseated. No fevers, no chills. OBJECTIVE: Vital Signs Period Temp Pulse Resp BP Sys/Frausto Pulse Ox Last 24 Hr 97.6 F-98.9 F 52-98 12-18 119-164/82-97 95-100 GENERAL: The patient is awake, alert, and fully oriented, in no acute distress. HEAD: Normal with no signs of trauma. EYES: PERRL, extraocular movements intact, sclera anicteric, conjunctiva clear. ENT: Ears normal, nares patent, oropharynx clear without exudates, moist mucous membranes. LUNGS: Breath sounds equal, clear to auscultation bilaterally, no wheezes, no crackles, no accessory muscle use. HEART: Regular rate and rhythm, S1, S2 without murmur, rub or gallop. ABDOMEN: Soft, nontender, nondistended, normoactive bowel sounds, no guarding, no rebound. EXTREMITIES: 2+ pulses, warm, well-perfused, no edema. NEUROLOGICAL: Cranial nerves II through XII grossly intact. Normal speech, no significant withdrawal symptoms SKIN: Warm, dry, normal turgor, no rashes or lesions noted Laboratory Results - last 24 hr 06/14/17 06/14/17 06/14/17 15:00 15:00 15:03 WBC 4.9 RBC 4.00 Hgb 12.9 Hct 37.9 MCV 94.9 MCH 32.4 MCHC 34.1 RDW 20.3 H D Plt Count 99 L D MPV 9.0 Neutrophils % 79.3 D Lymphocytes % 12.4 D Monocytes % 7.0 Eosinophils % 0.5 D Basophils % 0.8 Platelet Estimate Platelet Comment Polychromasia Anisocytosis Macrocytosis PT with INR 15.80 H INR 1.40 H PTT (Actin FS) 17.7 L Sodium Potassium Chloride Carbon Dioxide Anion Gap BUN Creatinine Creat Clearance w eGFR Random Glucose Lactic Acid Calcium Phosphorus Magnesium Total Bilirubin AST ALT Alkaline Phosphatase Creatine Kinase Troponin I Total Protein Albumin Lipase Urine Color Urine Appearance Urine pH Ur Specific [place] Urine Protein Urine Glucose (UA) Urine Ketones Urine Blood Urine Nitrite Urine Bilirubin Urine Urobilinogen Ur Leukocyte Esterase Urine WBC (Auto) Urine RBC (Auto) Urine Mucus Stool Occult Blood Opiates Screen Methadone Screen Barbiturate Screen Phencyclidine Screen Ur Amphetamines Screen MDMA (Ecstasy) Screen Benzodiazepines Screen Cocaine Screen U Marijuana (THC) Screen Blood Type O POSITIVE Antibody Screen Negative 06/14/17 06/14/17 06/14/17 15:03 15:03 15:03 WBC RBC Hgb Hct MCV MCH MCHC RDW Plt Count MPV Neutrophils % Lymphocytes % Monocytes % Eosinophils % Basophils % Platelet Estimate Platelet Comment Polychromasia Anisocytosis Macrocytosis PT with INR INR PTT (Actin FS) Sodium 142 Potassium 3.6 Chloride 103 Carbon Dioxide 31 Anion Gap 8 BUN 9 Creatinine 0.6 Creat Clearance w eGFR > 60 Random Glucose 138 H Lactic Acid 3.0 H* Calcium 8.2 L Phosphorus Magnesium Total Bilirubin 2.4 H D AST 208 H ALT 93 H Alkaline Phosphatase 231 H Creatine Kinase 52 Troponin I < 0.02 Total Protein 6.9 Albumin 3.2 L Lipase 70 L Urine Color Urine Appearance Urine pH Ur Specific [place] Urine Protein Urine Glucose (UA) Urine Ketones Urine Blood Urine Nitrite Urine Bilirubin Urine Urobilinogen Ur Leukocyte Esterase Urine WBC (Auto) Urine RBC (Auto) Urine Mucus Stool Occult Blood Opiates Screen Methadone Screen Barbiturate Screen Phencyclidine Screen Ur Amphetamines Screen MDMA (Ecstasy) Screen Benzodiazepines Screen Cocaine Screen U Marijuana (THC) Screen Blood Type Antibody Screen 06/14/17 06/14/17 06/14/17 15:20 15:24 15:50 WBC RBC Hgb Hct MCV MCH MCHC RDW Plt Count MPV Neutrophils % Lymphocytes % Monocytes % Eosinophils % Basophils % Platelet Estimate Platelet Comment Polychromasia Anisocytosis Macrocytosis PT with INR INR PTT (Actin FS) Sodium Potassium Chloride Carbon Dioxide Anion Gap BUN Creatinine Creat Clearance w eGFR Random Glucose Lactic Acid Calcium Phosphorus Magnesium Total Bilirubin AST ALT Alkaline Phosphatase Creatine Kinase Troponin I Total Protein Albumin Lipase Urine Color Dk yellow Urine Appearance Clear Urine pH 7.0 Ur Specific [place] 1.010 Urine Protein 1+ H Urine Glucose (UA) Negative Urine Ketones Negative Urine Blood Negative Urine Nitrite Negative Urine Bilirubin Negative Urine Urobilinogen 4.0 e.u/dl H Ur Leukocyte Esterase Negative Urine WBC (Auto) 1 Urine RBC (Auto) None Urine Mucus Rare Stool Occult Blood Negative Opiates Screen Methadone Screen Barbiturate Screen Phencyclidine Screen Ur Amphetamines Screen MDMA (Ecstasy) Screen Benzodiazepines Screen Cocaine Screen U Marijuana (THC) Screen Blood Type Cancelled Antibody Screen 06/14/17 06/14/17 06/14/17 19:40 19:40 19:40 WBC 4.4 RBC 3.90 Hgb 12.8 Hct 37.3 MCV 95.6 MCH 32.8 MCHC 34.3 RDW 20.7 H Plt Count 100 L MPV 8.7 Neutrophils % 83.2 H Lymphocytes % 9.2 D Monocytes % 6.8 Eosinophils % 0.2 Basophils % 0.6 Platelet Estimate Slt decrease Platelet Comment Polychromasia 1+ Anisocytosis 2+ Macrocytosis 1+ PT with INR INR PTT (Actin FS) Sodium Potassium Chloride Carbon Dioxide Anion Gap BUN Creatinine Creat Clearance w eGFR Random Glucose Lactic Acid 2.8 H* Calcium Phosphorus 1.6 L Magnesium 1.5 L Total Bilirubin AST ALT Alkaline Phosphatase Creatine Kinase Troponin I Total Protein Albumin Lipase Urine Color Urine Appearance Urine pH Ur Specific [place] Urine Protein Urine Glucose (UA) Urine Ketones Urine Blood Urine Nitrite Urine Bilirubin Urine Urobilinogen Ur Leukocyte Esterase Urine WBC (Auto) Urine RBC (Auto) Urine Mucus Stool Occult Blood Opiates Screen Methadone Screen Barbiturate Screen Phencyclidine Screen Ur Amphetamines Screen MDMA (Ecstasy) Screen Benzodiazepines Screen Cocaine Screen U Marijuana (THC) Screen Blood Type Antibody Screen 06/14/17 06/15/17 06/15/17 21:45 05:15 05:15 WBC 3.4 L RBC 3.79 Hgb 12.4 Hct 36.2 MCV 95.5 MCH 32.7 MCHC 34.2 RDW 20.2 H Plt Count 96 L MPV 9.0 Neutrophils % 67.2 Lymphocytes % 20.5 D Monocytes % 9.0 Eosinophils % 2.6 D Basophils % 0.7 Platelet Estimate Platelet Comment Polychromasia Anisocytosis Macrocytosis PT with INR INR PTT (Actin FS) Sodium 140 Potassium 3.3 L Chloride 103 Carbon Dioxide 33 H Anion Gap 4 L BUN 6 L Creatinine 0.6 Creat Clearance w eGFR > 60 Random Glucose 136 H Lactic Acid Calcium 7.1 L Phosphorus 2.1 L Magnesium 1.9 Total Bilirubin 2.6 H AST 155 H ALT 76 Alkaline Phosphatase 216 H Creatine Kinase Troponin I Total Protein 6.2 L Albumin 2.8 L Lipase Urine Color Urine Appearance Urine pH Ur Specific [place] Urine Protein Urine Glucose (UA) Urine Ketones Urine Blood Urine Nitrite Urine Bilirubin Urine Urobilinogen Ur Leukocyte Esterase Urine WBC (Auto) Urine RBC (Auto) Urine Mucus Stool Occult Blood Opiates Screen Positive Methadone Screen Negative Barbiturate Screen Negative Phencyclidine Screen Negative Ur Amphetamines Screen Negative MDMA (Ecstasy) Screen Negative Benzodiazepines Screen Negative Cocaine Screen Negative U Marijuana (THC) Screen Negative Blood Type Antibody Screen 06/15/17 05:15 WBC RBC Hgb Hct MCV MCH MCHC RDW Plt Count MPV Neutrophils % Lymphocytes % Monocytes % Eosinophils % Basophils % Platelet Estimate Platelet Comment Polychromasia Anisocytosis Macrocytosis PT with INR INR PTT (Actin FS) Sodium Potassium Chloride Carbon Dioxide Anion Gap BUN Creatinine Creat Clearance w eGFR Random Glucose Lactic Acid 2.4 H* Calcium Phosphorus Magnesium Total Bilirubin AST ALT Alkaline Phosphatase Creatine Kinase Troponin I Total Protein Albumin Lipase Urine Color Urine Appearance Urine pH Ur Specific [place] Urine Protein Urine Glucose (UA) Urine Ketones Urine Blood Urine Nitrite Urine Bilirubin Urine Urobilinogen Ur Leukocyte Esterase Urine WBC (Auto) Urine RBC (Auto) Urine Mucus Stool Occult Blood Opiates Screen Methadone Screen Barbiturate Screen Phencyclidine Screen Ur Amphetamines Screen MDMA (Ecstasy) Screen Benzodiazepines Screen Cocaine Screen U Marijuana (THC) Screen Blood Type Antibody Screen Active Medications Generic Name Dose Route Start Last Admin Trade Name Freq PRN Reason Stop Dose Admin Octreotide Acetate 1,200 mcg/ 500 mls @ 20.83 mls/hr 06/14/17 14:00 06/14/17 15:53 Dextrose IVPB 20.83 mls/hr ASDIR AMELIA Administration Protocol 50 MCG/HR Sodium Chloride 1,000 mls @ 125 mls/hr 06/14/17 13:45 06/15/17 12:18 Normal Saline - IV 125 mls/hr ASDIR AMELIA Administration Pantoprazole Sodium 160 mg/ 290 mls @ 14.5 mls/hr 06/14/17 14:15 06/15/17 12: 19 Dextrose IVPB 14.5 mls/hr Q20H AMELIA Administration Lorazepam 2 mg 06/14/17 18:58 06/15/17 07:41 Ativan Injection - IVPUSH 2 mg Q1H PRN Administration seizures Lorazepam 2 mg 06/14/17 19:00 06/15/17 10:24 Ativan Injection - IVPUSH 2 mg Q4H-IV AMELIA Administration Morphine Sulfate 2 mg 06/14/17 19:00 06/15/17 10:24 Morphine Sulfate IVPUSH 2 mg Q4H-IV AMELIA Administration Ondansetron HCl 4 mg 06/14/17 20:06 06/15/17 07:45 Zofran Injection IVPUSH 4 mg Q6H PRN Administration NAUSEA AND/OR VOMITING ASSESSMENT/PLAN: 47 year old with history of alcohol abuse, alcoholic pancreatitis, alcoholic liver disease, anxiety and fibromyalgia in the ICU with alcohol/benzo withdrawal and GI bleed. Neuro #Alcohol/Benzo withdrawal - Lorazepam 2mg q4h, lorazepam prn for seizures - Tele monitoring - Detox on board, will not detox at this time #Opiate withdrawal/Pain - Morphine 2mg q4 - Will not detox at this time CV #GI bleed -H/H stable -Reported coffee ground emesis in ED -Zofran, protonix drip, octreotide drip -Stable overnight -EGD today FEN/GI -NPO pending EGD -Will advance diet as tolerated PPx - no heparin due to bleed, octreotide/protonix drips Dispo - continued ICU monitoring Visit type - Emergency Visit Emergency Visit: Yes ED Registration Date: 06/14/17 Care time: The patient presented to the Emergency Department on the above date and was hospitalized for further evaluation of their emergent condition. - New Patient This patient is new to me today: Yes Date on this admission: 06/15/17 - Critical Care Critical Care patient: Yes Total Critical Care Time (in minutes): 45 Critical Care Statement: The care of this patient involved high complexity decision making to prevent further life threatening deterioration of the patient 's condition and/or to evaluate & treat vital organ system(s) failure or risk of failure.
--- NOTE | 2017-06-15 14:57 | PROC ---
Endoscopy Procedure Endoscopy procedure completed. Please see scanned procedure report. Moderate erythematous gastritis in the antrum. No other significant findings. Biopsies taken
[2017-06-15] MEDS: KCL 10 MEQ IVPB 10 MEQ/100 ML INFUS.BAG IVPB SCH ×3 (15:43→17:37)
[2017-06-15] MEDS ORDERED: PROMETHAZINE HCL 25 MG/1 ML VIAL IVPB PRN (15:49)
[2017-06-15] MEDS ORDERED: MAGNESIUM SULF 50% (8.12 MEQ/2 ML-1 GM VIAL) IVPB ONE (16:25)
[2017-06-15] MEDS ORDERED: MAGNESIUM SULFATE IN WATER 2 GM/50 ML IVPB IVPB ONE (16:30)
[2017-06-15] MEDS ORDERED: KCL 10 MEQ IVPB 10 MEQ/100 ML INFUS.BAG IVPB SCH (16:45)
[2017-06-15] MEDS ORDERED: morphine SULFATE 4 MG/ML VIAL IVPUSH ONE ×2 (17:00→18:30)
[2017-06-15] MEDS ORDERED: morphine SULFATE 4 MG/ML VIAL IVPUSH SCH (17:00)
[2017-06-15] MEDS ORDERED: morphine SULFATE 4 MG/ML VIAL ONE (17:03)
[2017-06-15] MEDS ORDERED: DEXAMETHASONE SOD PHOSPHATE 10 MG/1 ML VIAL ONE (17:03)
[2017-06-15] MEDS ORDERED: morphine SULFATE 4 MG/ML VIAL IVPUSH PRN ×3 (17:07→18:52)
[2017-06-15] MEDS: DEXAMETHASONE SOD PHOSPHATE 4 MG/1 ML VIAL IVPUSH ONE ×2 (17:11→18:03)
[2017-06-15] MEDS ORDERED: morphine SO4 SUSTAINED ACTING 30 MG TABLET.SA PO PRN (21:22)
--- NOTE | 2017-06-15 21:45 | EKG ---
Test Reason : Blood Pressure : / mmHG Vent. Rate : 070 BPM Atrial Rate : 070 BPM P-R Int : 140 ms QRS Dur : 088 ms QT Int : 550 ms P-R-T Axes : 055 010 047 degrees QTc Int : 594 ms SINUS RHYTHM WITH FREQUENT PREMATURE VENTRICULAR COMPLEXES IN A PATTERN OF BIGEMINY T WAVE ABNORMALITY, CONSIDER ANTERIOR ISCHEMIA ABNORMAL ECG WHEN COMPARED WITH ECG OF 14-JUN-2017 13:17, PREMATURE VENTRICULAR COMPLEXES ARE NOW PRESENT QT HAS LENGTHENED Confirmed by NANDA STRANGE MD ([id number]) on 06/15/2017 9:45:20 PM Referred By: Nena SOSA Confirmed By:NANDA SRTANGE MD
[2017-06-15 23:53] VITALS: TEMP 98.9
[2017-06-16 00:29] VITALS: BP 151/89; PULSE 69
[2017-06-16] MEDS ORDERED: VECURONIUM BROMIDE 10 MG VIAL ONE (03:29)
--- NOTE | 2017-06-16 04:02 | PN ---
Progress Note (short form) - Note Progress Note: Intubation Note: Called to ICU for a code blue. Patient was in Vfib/vtach, ambu bag, chest compressions in progress. Patient intubated with Mac 4 blade, 7.5 ETT, grade 2 view with cricoid pressure, tube at 22cm at lips, bilateral breath sounds, CO2 detected by calormetry. Care was transferred to ICU team.
--- NOTE | 2017-06-16 04:58 | HOSP ---
Subjective - Review of Symptoms Subjective: CODE BLUE called at 3:24 AM CPR started Rhythm Vfib shocked X4 EPI, Amio, And Lidocaine, Magnesium and Potassium Intubated at bedside Time of at 3:44 Am Family notified Pastoral services requested by family Case referred to [phone] [id number] Physical Examination Vital Signs: Vital Signs Temperature 98.9 F 06/15/17 22:00 Pulse Rate 69 06/16/17 00:00 Respiratory Rate 17 06/16/17 00:00 Blood Pressure 151/89 06/16/17 00:00 O2 Sat by Pulse Oximetry (%) 98 06/15/17 20:32 Labs: CBC, BMP 06/15/17 05:15 06/15/17 05:15
--- NOTE | 2017-06-16 05:10 | HOSP ---
Subjective - Review of Symptoms Events since last encounter: Patient seen and examined after Code 99 No spontaneous movements or respirations No response to tactile or painful stimuli No heart or lung sounds Nonreactive pupils. No corneal or gag reflex HR 0 and BP 0/0 Patient pronounced on 03:44 AM Family notified. PMD notified Printing Table Worker contacted. Case accepted. Visit type - Emergency Visit Emergency Visit: No - New Patient This patient is new to me today: Yes Date on this admission: 06/16/17 - Critical Care Critical Care patient: No
--- NOTE | 2017-06-16 05:17 | PN ---
Progress Note (short form) - Note Progress Note: CODE 99 Medical team responded to overhead code 99. Patient unresponsive. Desating. Initial rhythm was ventricular fibrillation. CPR was was initiated and conducted as per ACLS protocol. Total duration of CPR: 17 minuets Drugs: -Epinephrine x3 doses -Amiodarone 300mg x1 dose -Lidocaine 100mg x1 dose -bicarb x1dose -mg Shocked x4 200J; consistently in v fib Intubation: performed by anesthesia team; Lines: had central access already right IJ Results of Code: ; time 3:44am Next of kin notified: yes Primary attending notified: hospitalist team Case referred to [id number]
[2017-06-16] MEDS ORDERED: PANTOPRAZOLE SODIUM 40 MG VIAL IVPUSH SCH (10:00)
--- NOTE | 2017-06-16 10:17 | HOSP ---
Physical Examination Vital Signs: Vital Signs Temperature 98.9 F 06/15/17 22:00 Pulse Rate 69 06/16/17 00:00 Respiratory Rate 17 06/16/17 00:00 Blood Pressure 151/89 06/16/17 00:00 O2 Sat by Pulse Oximetry (%) 98 06/15/17 20:32 Findings/Remarks: 3:18pm Called and spoke to Dr. Ayala who has recommended placing the patient on a Librium taper and Methadone taper and discontinue Morphine and Ativan once tolerating diet 4: 30 pm: Called by RN that patient's qtc was prolonged to 590. Discontinued Zofran, Protonix Called and spoke to Dr. Surya Park who recommended having K >4 and Mg >2. Electrolytes ordered. Further recommendations per cardiology Continue to monitor closely 5:17pm: Called and spoke to Dr. Rutledge who states the patient still with complaints of nausea/vomiting following the EGD. Per Dr. Henderson, Dr. Rutledge states he will increase morphing and start Decadron for nausea Continue to monitor closely Labs: CBC, BMP 06/15/17 05:15 06/15/17 05:15
--- NOTE | 2017-06-18 12:12 | PATH ---
Surgical Pathology Report Patient Name: JULIAN ANDRADE [facility]. Rec. 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 Specimen(s) Received A: BX SECOND PORTION DUODENUM B: BX ANTRUM AND BODY C: BX MID ESOPHAGUS Clinical History Upper GI bleed Postoperative diagnosis: Gastritis, small hiatal hernia Final Diagnosis A. SECOND PORTION DUODENUM, BIOPSY: DUODENAL MUCOSA WITH NO PATHOLOGIC FINDINGS. B. ANTRUM AND BODY, BIOPSY: MILD CHRONIC GASTRITIS. IMMUNOSTAIN IS NEGATIVE FOR H. PYLORI ORGANISMS. C. MIDESOPHAGUS, BIOPSY: HYPERPLASTIC ESOPHAGEAL (SQUAMOUS) MUCOSA WITH RARE INTRAEPITHELIAL EOSINOPHILS, CONSISTENT WITH REFLUX ESOPHAGITIS. NO COLUMNAR EPITHELIUM/INTESTINAL METAPLASIA IS IDENTIFIED. Electronically Signed Fabiana Salguero M.D. Gross Description A. Received in formalin, labeled "biopsy second portion of duodenum" are 2 solomon, irregular portions of soft tissue measuring 0.3 and 0.4 cm. in greatest dimension. The specimens are submitted in toto in one cassette. B. Received in formalin, labeled "biopsy antrum and body" are 2 solomon, irregular portions of soft tissue measuring 0.2 and 0.3 cm. in greatest dimension. The specimens are submitted in toto in one cassette. C. Received in formalin, labeled "biopsy midesophagus" is a solomon, irregular portion of soft tissue measuring 0.6 cm. in greatest dimension. The specimen is submitted in toto in one cassette. 06/16/2017 saudi06/16/2017
== END 2017-06-16 03:44 | disposition expired | DRG 378 ==
LOC: JER 13:04 → JERBED 16:53 → UNDOADMIN 17:40 → JERBED 17:40 → JICU 18:44
PROVIDERS: ADMIT Internal Medicine; ATTEND Registered Nurse
PROC: HZ2ZZZZ Detoxification Services for Substance Abuse Treatment (ICD-10-PCS; 2017-06-14)
PROC: 0DD68ZX Extraction of Stomach, Via Natural or Artificial Opening Endoscopic, Diagnostic (ICD-10-PCS; 2017-06-15)
PROC: 0DD98ZX Extraction of Duodenum, Via Natural or Artificial Opening Endoscopic, Diagnostic (ICD-10-PCS; 2017-06-15)
PROC: 5A12012 Performance of Cardiac Output, Single, Manual (ICD-10-PCS; principal; 2017-06-16)
PROC: 0BH17EZ Insertion of Endotracheal Airway into Trachea, Via Natural or Artificial Opening (ICD-10-PCS; 2017-06-16)
PROC: 5A1935Z Respiratory Ventilation, Less than 24 Consecutive Hours (ICD-10-PCS; 2017-06-16)
PROC: 5A2204Z Restoration of Cardiac Rhythm, Single (ICD-10-PCS; 2017-06-16)
PROC: 05HM33Z Insertion of Infusion Device into Right Internal Jugular Vein, Percutaneous Approach (ICD-10-PCS; 2017-06-16)
DX: K92.2 Gastrointestinal hemorrhage, unspecified (principal); F10.230 Alcohol dependence with withdrawal, uncomplicated; E87.2 Acidosis; F11.23 Opioid dependence with withdrawal; F13.129 Sedative, hypnotic or anxiolytic abuse with intoxication, unspecified; K70.30 Alcoholic cirrhosis of liver without ascites; M79.7 Fibromyalgia; Z86.74 Personal history of sudden cardiac arrest; F32.9 Major depressive disorder, single episode, unspecified; F41.9 Anxiety disorder, unspecified; I45.81 Long QT syndrome; K70.10 Alcoholic hepatitis without ascites; D69.6 Thrombocytopenia, unspecified; K29.60 Other gastritis without bleeding; I49.01 Ventricular fibrillation; I46.9 Cardiac arrest, cause unspecified; K44.9 Diaphragmatic hernia without obstruction or gangrene
CPT/HCPCS: 36415; 71045-TC-FY; 76705-TC; 80053; 80307; 81003; 81015; 82272; 82550; 83605; 83690; 83735; 84100; 84484; 84703; 85025; 85610; 85730; 86850; 86900; 86901; 87040; 87086; 88305-TC; 93005; 93010; 99285-25; J1100; J7030